=== PATIENT | male | born 2000 | race Two or more races ===

== ENCOUNTER 2023-01-24 17:52 | Emergency (ER) | payer OTHER ==
[2023-01-24 18:01] VITALS: BP 116/64; PULSE 89; RESP 18; TEMP 97; BMI 27.2
[2023-01-24] MEDS ORDERED: ACETAMINOPHEN 500 MG TABLET (FP) PO ONE (21:12)
[2023-01-24] MEDS ORDERED: KETOROLAC TROMETHAMINE 30 MG/1 ML VIAL IM ONE (21:12)
[2023-01-24] MEDS ORDERED: KETOROLAC TROMETHAMINE 30 MG/1 ML VIAL ONE (21:14)
[2023-01-24] MEDS ORDERED: ACETAMINOPHEN 500 MG TABLET (FP) ONE (21:14)
== END 2023-01-24 23:07 | disposition left against medical advice (07) ==
LOC: JERFT 17:52 → JER 17:52 → JERFT 23:07
PROC: 3E0233Z Introduction of Anti-inflammatory into Muscle, Percutaneous Approach (ICD-10-PCS; principal; 2023-01-24)
DX: M79.662 Pain in left lower leg (principal); S82.202S Unspecified fracture of shaft of left tibia, sequela; W34.00XS Accidental discharge from unspecified firearms or gun, sequela
CPT/HCPCS: 73590-TC-LT-FY; 73630-TC-LT; 99284-25

== ENCOUNTER 2023-01-24 23:14 | Emergency (ER) | payer OTHER ==
[2023-01-24 23:24] VITALS: BMI 27.3
[2023-01-25 03:59] VITALS: BP 105/69; PULSE 84; RESP 19; TEMP 98
== END 2023-01-25 04:00 | disposition short-term general hospital (02) ==
LOC: JER 23:14
DX: M79.662 Pain in left lower leg (principal); S82.202S Unspecified fracture of shaft of left tibia, sequela; W34.00XS Accidental discharge from unspecified firearms or gun, sequela; Z20.822 Contact with and (suspected) exposure to COVID-19
CPT/HCPCS: 87635; 99285-25

== ENCOUNTER 2023-02-03 00:23 | Emergency (ER) | payer OTHER ==
[2023-02-03 00:45] VITALS: BP 121/74; PULSE 84; RESP 18; TEMP 97.3; BMI 26.4
[2023-02-03] MEDS ORDERED: ACETAMINOPHEN 325 MG TABLET (FP) PO STA (01:24)
[2023-02-03] MEDS ORDERED: ACETAMINOPHEN 325 MG TABLET (FP) ONE (01:32)
== END 2023-02-03 02:13 | disposition home or self-care (01) ==
LOC: JER 00:23
DX: S82.202D Unspecified fracture of shaft of left tibia, subsequent encounter for closed fracture with routine healing (principal); M79.605 Pain in left leg; W34.00XD Accidental discharge from unspecified firearms or gun, subsequent encounter
CPT/HCPCS: 73590-TC-LT-FY; 99283-25

== ENCOUNTER 2023-03-10 15:56 | Inpatient (IN) | payer OTHER ==
[2023-03-10 19:11] VITALS: BMI 27.1
[2023-03-10] MEDS ORDERED: METHOCARBAMOL 500 MG TABLET PO PRN (21:08)
[2023-03-10] MEDS ORDERED: BENZONATATE 200 MG CAPSULE PO PRN (21:08)
[2023-03-10] MEDS ORDERED: P-EPHED 60MG/TRIPROLIDI 2.5MG TABLET PO PRN (21:08)
[2023-03-10] MEDS ORDERED: BENZOCAINE/MENTHOL (CHLORASEPTIC ) LOZENGE MM PRN (21:08)
[2023-03-10] MEDS ORDERED: IBUPROFEN 600 MG TABLET (FP) PO PRN (21:08)
[2023-03-10] MEDS ORDERED: POLYETHYLENE GLYCOL (HEALTHYLAX) 3350 17 GM PACKET PO PRN (21:08)
[2023-03-10] MEDS ORDERED: guaiFENesin 600 MG TABLET.ER (FP) PO PRN (21:08)
[2023-03-10] MEDS ORDERED: NALOXONE HCL (KLOXXADO) 8 MG SPRAY NS PRN (21:08)
[2023-03-10] MEDS ORDERED: MAG HYDROX/AL HYDROX/SIMETH 30 ML UNIT-DOSE CUP PO PRN (21:08)
[2023-03-10] MEDS ORDERED: ACETAMINOPHEN 325 MG TABLET (FP) PO PRN (21:08)
[2023-03-10] MEDS ORDERED: IBUPROFEN 400 MG TABLET (FP) PO PRN (21:08)
[2023-03-10] MEDS ORDERED: BISMUTH SUBSALICYLATE 524 MG/30 ML PO PRN (21:08)
[2023-03-10] MEDS ORDERED: MAGNESIUM HYDROX 2400MG/30ML ORAL SUSPENSION 30 ML CUP PO PRN (21:08)
[2023-03-10] MEDS ORDERED: hydrOXYzine PAMOATE 25 MG CAPSULE (FP) PO PRN (21:08)
[2023-03-10] MEDS ORDERED: NICOTINE POLACRILEX 2 MG LOZENGE BC PRN (21:08)
[2023-03-10] MEDS ORDERED: NALOXONE HCL 0.4 MG/ML VIAL IM PRN (21:08)
[2023-03-10] MEDS ORDERED: LOPERAMIDE HCL 2 MG CAPSULE PO PRN (21:08)
[2023-03-10] MEDS ORDERED: ONDANSETRON *ODT* 4 MG TABLET SL PRN (21:08)
[2023-03-10] MEDS ORDERED: DICYCLOMINE HCL 10 MG CAPSULE PO PRN (21:08)
[2023-03-10] MEDS: THIAMINE HCL 100 MG TABLET (FP) PO SCH (21:54)
[2023-03-10] MEDS: MELATONIN 5 MG TABLETS PO SCH (21:54)
[2023-03-11] MEDS ORDERED: methaDONE HCL 10 MG TABLET (FOR DETOX USE ONLY) PO ONE (09:51)
[2023-03-11] MEDS ORDERED: diazePAM 5 MG TABLET PO PRN (09:56)
[2023-03-11] MEDS: PRENATAL VITAMINS W/ FOLIC ACID TABLET (FP) PO SCH (10:43)
[2023-03-11] MEDS ORDERED: NICOTINE POLACRILEX 2 MG GUM BUC PRN (11:33)
[2023-03-11 11:45] LABS: HEMOGLOBIN 12.1 GM/dL (11.7-16.9); MCH 24.3 pg (25.7-33.7); MCHC 31.7 g/dl (32.0-35.9); MEAN CELL VOLUME 76.5 fl (80-96); MEAN PLT VOLUME 9.3 fl (7.5-11.1); PLATELET COUNT 195 10^3/uL (134-434); RBC 4.97 M/mm3 (4.00-5.60); RDW 18.5 % (11.9-15.9); WHITE BLOOD COUNT 6.2 K/mm3 (4.0-10.0)
[2023-03-11 12:23] LABS: POTASSIUM 4.5 mmol/L (3.5-5.1)
[2023-03-11 12:31] LABS: ALBUMIN 3.1 g/dl (3.4-5.0); BILIRUBIN,TOTAL 0.5 mg/dL (0.2-1)
[2023-03-11 12:32] LABS: CALCIUM 8.7 mg/dL (8.5-10.1); TOT PROT 6.5 g/dl (6.4-8.2)
[2023-03-11 12:33] LABS: CREATININE 0.8 mg/dL (0.55-1.3)
[2023-03-11] MEDS: NICOTINE 21 MG/24 HOURS TOPICAL PATCH TD SCH (17:34)
[2023-03-11] MEDS: THIAMINE HCL 100 MG TABLET (FP) PO SCH (22:12)
[2023-03-11] MEDS: MELATONIN 5 MG TABLETS PO SCH (22:13)
[2023-03-12 08:16] VITALS: TEMP 98.2
[2023-03-12 08:56] VITALS: RESP 16
[2023-03-12 09:56] VITALS: BP 133/71; PULSE 69
[2023-03-12] MEDS ORDERED: NICOTINE 21 MG/24 HOURS TOPICAL PATCH TD SCH (10:00)
[2023-03-12] MEDS: PRENATAL VITAMINS W/ FOLIC ACID TABLET (FP) PO SCH (10:16)
[2023-03-12] MEDS: NICOTINE 21 MG/24 HOURS TOPICAL PATCH TD SCH (10:17)
[2023-03-13] MEDS ORDERED: methaDONE HCL 10 MG TABLET (FOR DETOX USE ONLY) PO ONE (10:00)
== END 2023-03-12 11:35 | disposition left against medical advice (07) | DRG 770 ==
LOC: YASAS 15:56 → Y6N 21:18
PROVIDERS: ADMIT Allergy & Immunology; ATTEND Surgery
PROC: HZ2ZZZZ Detoxification Services for Substance Abuse Treatment (ICD-10-PCS; principal; 2023-03-10)
DX: F11.23 Opioid dependence with withdrawal (principal); F17.210 Nicotine dependence, cigarettes, uncomplicated
CPT/HCPCS: 36415; 80053; 85027; 86780; 87635

== ENCOUNTER 2023-07-09 14:55 | Inpatient (IN) | payer OTHER ==
[2023-07-09 17:30] VITALS: BMI 26.6
[2023-07-09] MEDS ORDERED: POLYETHYLENE GLYCOL (HEALTHYLAX) 3350 17 GM PACKET PO PRN (19:00)
[2023-07-09] MEDS ORDERED: IBUPROFEN 600 MG TABLET (FP) PO PRN (19:00)
[2023-07-09] MEDS ORDERED: MAGNESIUM HYDROX 2400MG/30ML ORAL SUSPENSION 30 ML CUP PO PRN (19:00)
[2023-07-09] MEDS ORDERED: DICYCLOMINE HCL 10 MG CAPSULE PO PRN (19:00)
[2023-07-09] MEDS ORDERED: BENZONATATE 200 MG CAPSULE PO PRN (19:00)
[2023-07-09] MEDS ORDERED: NICOTINE POLACRILEX 4 MG GUM BUC PRN (19:00)
[2023-07-09] MEDS ORDERED: BISMUTH SUBSALICYLATE 524 MG/30 ML PO PRN (19:00)
[2023-07-09] MEDS ORDERED: ACETAMINOPHEN 325 MG TABLET (FP) PO PRN (19:00)
[2023-07-09] MEDS ORDERED: NALOXONE HCL 0.4 MG/ML VIAL IM PRN (19:00)
[2023-07-09] MEDS ORDERED: LOPERAMIDE HCL 2 MG CAPSULE PO PRN (19:00)
[2023-07-09] MEDS ORDERED: BENZOCAINE/MENTHOL (CHLORASEPTIC ) LOZENGE MM PRN (19:00)
[2023-07-09] MEDS ORDERED: guaiFENesin 600 MG TABLET.ER (FP) PO PRN (19:00)
[2023-07-09] MEDS ORDERED: IBUPROFEN 400 MG TABLET (FP) PO PRN (19:00)
[2023-07-09] MEDS ORDERED: MAG HYDROX/AL HYDROX/SIMETH 30 ML UNIT-DOSE CUP PO PRN (19:00)
[2023-07-09] MEDS ORDERED: NALOXONE HCL (KLOXXADO) 8 MG SPRAY NS PRN (19:00)
[2023-07-09] MEDS ORDERED: ONDANSETRON *ODT* 4 MG TABLET SL PRN (19:00)
[2023-07-09] MEDS: hydrOXYzine PAMOATE 25 MG CAPSULE (FP) PO PRN (22:56)
[2023-07-09] MEDS: METHOCARBAMOL 500 MG TABLET PO PRN (22:56)
[2023-07-09] MEDS: MELATONIN 5 MG TABLETS PO SCH (22:56)
[2023-07-09] MEDS: THIAMINE 100 MG TABLET PO SCH (22:57)
[2023-07-10] MEDS: NICOTINE 21 MG/24 HOURS TOPICAL PATCH TD SCH (10:59)
[2023-07-10] MEDS: PRENATAL VITAMINS W/ FOLIC ACID TABLET (FP) PO SCH (11:00)
[2023-07-10 13:06] VITALS: BP 123/75; PULSE 104; RESP 18; TEMP 97.6
[2023-07-10 14:51] LABS: HEMATOCRIT 43.2 % (35.4-49); MCH 27.6 pg (25.7-33.7); MCHC 32.4 g/dl (32.0-35.9); MEAN CELL VOLUME 85.1 fl (80-96); MEAN PLT VOLUME 9.5 fl (7.5-11.1); PLATELET COUNT 196 10^3/uL (134-434); RBC 5.07 M/mm3 (4.00-5.60); RDW 15.6 % (11.9-15.9); WHITE BLOOD COUNT 5.8 K/mm3 (4.0-10.0)
[2023-07-10 14:54] LABS: CHLORIDE 106 mmol/L (98-107); POTASSIUM 4.7 mmol/L (3.5-5.1); SODIUM 138 mmol/L (136-145)
[2023-07-10 15:03] LABS: SGPT/ALT 23 U/L (13-61)
[2023-07-10 15:07] LABS: BILIRUBIN,TOTAL 0.8 mg/dL (0.2-1); TOT PROT 7.1 g/dl (6.4-8.2)
[2023-07-10 15:08] LABS: ALBUMIN 3.4 g/dl (3.4-5.0); ALK PHOS 100 U/L (45-117); CALCIUM 8.9 mg/dL (8.5-10.1)
[2023-07-10 15:10] LABS: ANION GAP 3 mmol/L (4-13); BLOOD UREA NITROGEN 11.2 mg/dL (7-18); CO2 28 mmol/L (21-32); GLUCOSE,RANDOM 119 mg/dL (74-106)
[2023-07-10 15:13] LABS: CREATININE 0.9 mg/dL (0.55-1.3); SGOT/AST 16 U/L (15-37)
== END 2023-07-10 15:48 | disposition home or self-care (01) | DRG 773 ==
LOC: YASAS 14:55 → Y3N 21:48
PROVIDERS: ADMIT Allergy & Immunology; ATTEND Surgery
PROC: HZ2ZZZZ Detoxification Services for Substance Abuse Treatment (ICD-10-PCS; principal; 2023-07-09)
DX: F11.23 Opioid dependence with withdrawal (principal); F15.20 Other stimulant dependence, uncomplicated; F17.210 Nicotine dependence, cigarettes, uncomplicated; Z91.148 Patient's other noncompliance with medication regimen for other reason; Z56.0 Unemployment, unspecified
CPT/HCPCS: 36415; 80053; 80305; 80307; 85027; 86780; 93005; 93010

== ENCOUNTER 2023-07-12 22:13 | Inpatient (IN) | payer OTHER ==
[2023-07-12 23:26] VITALS: BMI 25.8
[2023-07-13] MEDS ORDERED: MAGNESIUM HYDROX 2400MG/30ML ORAL SUSPENSION 30 ML CUP PO PRN (02:23)
[2023-07-13] MEDS ORDERED: LOPERAMIDE HCL 2 MG CAPSULE PO PRN (02:23)
[2023-07-13] MEDS ORDERED: NALOXONE HCL 0.4 MG/ML VIAL IM PRN (02:23)
[2023-07-13] MEDS ORDERED: BENZONATATE 200 MG CAPSULE PO PRN (02:23)
[2023-07-13] MEDS ORDERED: MAG HYDROX/AL HYDROX/SIMETH 30 ML UNIT-DOSE CUP PO PRN (02:23)
[2023-07-13] MEDS ORDERED: hydrOXYzine PAMOATE 25 MG CAPSULE (FP) PO PRN (02:23)
[2023-07-13] MEDS ORDERED: ACETAMINOPHEN 325 MG TABLET (FP) PO PRN (02:23)
[2023-07-13] MEDS ORDERED: IBUPROFEN 600 MG TABLET (FP) PO PRN (02:23)
[2023-07-13] MEDS ORDERED: BENZOCAINE/MENTHOL (CHLORASEPTIC ) LOZENGE MM PRN (02:23)
[2023-07-13] MEDS ORDERED: NALOXONE HCL (KLOXXADO) 8 MG SPRAY NS PRN (02:23)
[2023-07-13] MEDS ORDERED: IBUPROFEN 400 MG TABLET (FP) PO PRN (02:23)
[2023-07-13] MEDS ORDERED: guaiFENesin 600 MG TABLET.ER (FP) PO PRN (02:23)
[2023-07-13] MEDS ORDERED: POLYETHYLENE GLYCOL (HEALTHYLAX) 3350 17 GM PACKET PO PRN (02:23)
[2023-07-13] MEDS ORDERED: NICOTINE POLACRILEX 2 MG GUM BUC PRN (02:23)
[2023-07-13 06:30] VITALS: BP 118/71; PULSE 87; RESP 18; TEMP 97.7
[2023-07-13] MEDS: TUBERCULIN PPD 5 TU/0.1ML SYRINGE (IN PATIENT USE ONLY) ID ONE (09:25)
[2023-07-13] MEDS: PRENATAL VITAMINS W/ FOLIC ACID TABLET (FP) PO SCH (09:26)
[2023-07-13] MEDS: NICOTINE 14 MG/24 HOURS TOPICAL PATCH TD SCH (09:26)
[2023-07-13 13:10] LABS: EPI CELLS 6 /uL (0-25.1); HYALINE CASTS 1 /uL (0-3.1); PH,URINE 5.5 (5.0-8.0); URINE APPEARANCE CLEAR; URINE BACTERIA 5 /uL (0-1359); URINE BILIRUBIN NEGATIVE (NEGATIVE); URINE COLOR YELLOW; URINE GLUCOSE (UA) NEGATIVE (NEGATIVE); URINE KETONE NEGATIVE (NEGATIVE); URINE LEUK ESTERASE 1+ (NEGATIVE); URINE NITRITE NEGATIVE (NEGATIVE); URINE PROTEIN NEGATIVE (NEGATIVE); URINE RBC 5 /uL (0-23.9); URINE UROBILINOGEN 0.2 mg/dL (0.2-1.0); URINE WBC 63 /uL (0-25.8)
[2023-07-13] MEDS ORDERED: THIAMINE 100 MG TABLET PO SCH (22:00)
[2023-07-13] MEDS ORDERED: MELATONIN 5 MG TABLETS PO SCH (22:00)
== END 2023-07-13 11:55 | disposition left against medical advice (07) | DRG 770 ==
LOC: YASAS 22:13 → Y3NR 07-13 03:00 → Y3W 07-13 11:15
PROVIDERS: ADMIT Allergy & Immunology; ATTEND Psychiatry & Neurology Pain Medicine
PROC: HZ42ZZZ Group Counseling for Substance Abuse Treatment, Cognitive-Behavioral (ICD-10-PCS; principal; 2023-07-13)
DX: F11.20 Opioid dependence, uncomplicated (principal); F17.210 Nicotine dependence, cigarettes, uncomplicated; Z91.148 Patient's other noncompliance with medication regimen for other reason
CPT/HCPCS: 36415; 80305; 80307; 81003; 87811; 93005; 93010